=== PATIENT | female | born 1990 | race Caucasian/White ===

== ENCOUNTER 2016-12-07 08:53 | Emergency (ER) | payer BC ==
[2016-12-07 09:14] VITALS: BP 109/75
--- NOTE | 2016-12-07 09:26 | UC ---
Back Pain HPI - HPI Summary HPI Summary: She was "horsing around" with her boyfriend a few weeks ago and she fell off the bed and she had severe back extension. She had sudden pain and has had pain ever since. Intermittent thigh numbness. No weakness. pain is worse with back extension. - History of Current Complaint Chief Complaint: UCBackPain Stated Complaint: BACK PAIN Time Seen by Provider: 12/07/16 09:08 Hx Obtained From: Patient Hx Last Menstrual Period: "last week" ?: No Onset/Duration: Sudden Onset, Lasting Weeks Timing: Constant, Lasting Weeks Severity Initially: Severe Severity Currently: Severe Character: Sharp, Aching Aggravating: Movement, Lifting, Bending Alleviating: Rest, Position Associated Signs And Symptoms: Positive: Tingling. Negative: Bruising, Weakness , Numbness, Bladder Incontinence, Bowel Incontinence - Allergies/Home Medications Allergies/Adverse Reactions: Allergies Allergy/AdvReac Type Severity Reaction Status Date / Time Azithromycin [From Zithromax] Allergy Hives Verified 12/07/16 09:02 Clarithromycin [From Biaxin] Allergy Hives Verified 12/07/16 09:02 Tetracycline Allergy Hives Verified 12/07/16 09:02 [From Biocycline] Buprenorphine [From Butrans] AdvReac Nausea And Verified 12/07/16 09:02 Vomiting Tramadol AdvReac Nausea Verified 12/07/16 09:02 Home Medications: Home Medications PARoxetine HCL TAB* [Paxil TAB*] 20 mg PO DAILY 12/07/16 [History Confirmed ] oxyCODONE/Acetamin 10/325(NF) [Percocet 10/325 (NF)] 1 tab PO Q8H PRN 12/07/16 [ History Confirmed 12/07/16] PMH/Surg Hx/FS Hx/Imm Hx Previously Healthy: Yes - no prior back injury. - Surgical History Surgical History: Yes Surgery Procedure, Year, and Place: Sinus, 2015, [facility] (Dr. Cordova); Right Wrist Cystectomy, 2008, [facility]; T&A, 1996, [facility] - Family History Known Family History: Positive: Other - no known back disease. - Social History Lives: With Family Alcohol Use: Rare Substance Use Type: Prescribed Substance Use Comment - Amount & Last Used: Percocet - 12/05/16 Smoking Status (MU): Heavy Every Day Tobacco Smoker Type: Cigarettes Amount Used/How Often: 1/2 PPD Length of Time of Smoking/Using Tobacco: Since Age 16 Have You Smoked in the Last Year: Yes Household Exposure Type: Cigarettes - Immunization History Most Recent Influenza Vaccination: Not the Season Review of Systems Musculoskeletal: Other: - back pain. All Other Systems Reviewed And Are Negative: Yes Physical Exam Triage Information Reviewed: Yes Appearance: Well-Nourished - back pain with changes in position., Pain Distress Vital Signs: Initial Vital Signs Temp 98.2 F 12/07/16 08:58 Pulse 82 12/07/16 08:58 Resp 16 12/07/16 08:58 BP 109/75 12/07/16 08:58 Pulse Ox 100 12/07/16 08:58 Vital Signs Reviewed: Yes Eye Exam: Normal ENT Exam: Normal Neck exam: Normal Respiratory Exam: Normal Cardiovascular Exam: Normal Abdominal Exam: Normal Musculoskeletal Exam: Other - tenderness midline along T10-L1. no bruising. no obvious deformity. Neurological Exam: Normal - reflexes patella and achilles intact. Pin prick all dermatomes of the Lower extremeties intact and symmetric. Psychological Exam: Normal Psychological: Positive: Normal Response To Family Skin Exam: Normal Back Pain Course/Dx - Course Course Of Treatment: back strain from forced extension. there isno fx on x ray and neurologic exam is intact. no neuro deficits. I believe she can follow with sports medicine for back pain and possible PT. she will return for any wrosening or any consistent neuro symptoms. Mother was present for conversation. - Differential Dx/Diagnosis Provider Diagnoses: back strain. forced extension injury. Discharge - Discharge Plan Condition: Good Disposition: HOME Prescriptions: Naproxen [Naproxen 500 mg] 500 mg PO Q8H PRN #20 tab PRN Reason: Pain Patient Education Materials: Low Back Strain (ED), Lower Back Exercises (ED) Referrals: Bhargav Lafleur [Medical Doctor] -
--- NOTE | 2016-12-07 09:50 | RAD ---
INDICATION: Point tenderness at T10-L1 after falling off of a bed one day earlier COMPARISON: Lumbar spine radiograph dated December 12, 2012 TECHNIQUE: 3 views of the thoracic spine and 5 views of the lumbosacral were obtained. FINDINGS: There is very mild S-shaped curvature of the thoracic spine on the AP view, levoconvex superiorly and dextroconvex inferiorly. On the lateral view the vertebral bodies are appropriately aligned, intact and maintain appropriate height. Again seen is approximately 18 degrees of levoconvex curvature at the lumbar spine with the apex at the L3 vertebral body this is not significantly changed since the prior radiograph. The vertebral bodies are otherwise appropriately aligned and intact. IMPRESSION: Curvature of the thoracic and lumbar spine as described above without radiographically apparent fracture or dislocation.
== END 2016-12-07 10:01 | disposition home or self-care (01) ==
LOC: UCCORT 08:53
DX: S29.012A Strain of muscle and tendon of back wall of thorax, initial encounter (principal); R20.2 Paresthesia of skin; X58.XXXA Exposure to other specified factors, initial encounter; Y93.83 Activity, rough housing and horseplay; Y92.003 Bedroom of unspecified non-institutional (private) residence as the place of occurrence of the external cause; Z88.1 Allergy status to other antibiotic agents; Z88.5 Allergy status to narcotic agent; F17.210 Nicotine dependence, cigarettes, uncomplicated
CPT/HCPCS: 72070; 72110; 99212; G0463

== ENCOUNTER 2017-06-19 09:55 | Emergency (ER) | payer BC ==
[2017-06-19 12:13] VITALS: BP 109/66
--- NOTE | 2017-06-19 12:47 | UC ---
Ear Complaint HPI - HPI Summary HPI Summary: Pt c/o right ear pain X 1 day. Pt is scheduled for wisdom teeth extraction next week and has been told all 4 wisdom teeth are impacted. Pt was told that wisdom teeth are infected by dental care provider, no antibiotic given per patient - History of Current Complaint Chief Complaint: UCEar Stated Complaint: DENTAL COMPLAINT,RT EAR PAIN Time Seen by Provider: 06/19/17 12:19 Hx Obtained From: Patient Hx Last Menstrual Period: 05/22/17 ?: No Onset/Duration: Sudden Onset, Lasting Days, Still Present Severity Initially: Mild Severity Currently: Mild Pain Intensity: 5 - Allergies/Home Medications Allergies/Adverse Reactions: Allergies Allergy/AdvReac Type Severity Reaction Status Date / Time azithromycin [From Zithromax] Allergy Hives Verified 06/19/17 12:07 buprenorphine Allergy Nausea And Verified 06/19/17 12:07 Vomiting clarithromycin [From Biaxin] Allergy Hives Verified 06/19/17 12:07 tetracycline Allergy Hives Verified 06/19/17 12:07 tramadol Allergy Nausea Verified 06/19/17 12:07 Home Medications: Home Medications Escitalopram (NF) [Lexapro 20 mg (NF)] 20 mg PO DAILY 06/19/17 [History Confirmed 06/19/17] Naproxen Sodium [Aleve] 440 mg PO ONCE PRN 06/19/17 [History Confirmed 06/19/17] PMH/Surg Hx/FS Hx/Imm Hx Previously Healthy: Yes - Surgical History Surgical History: Yes Surgery Procedure, Year, and Place: T & A ';. CYSTECTOMY R WRIST--2008. sinus - Family History Known Family History: Positive: Other - no known back disease. - Social History Occupation: Employed Full-time Lives: With Family Alcohol Use: Rare Substance Use Type: None Substance Use Comment - Amount & Last Used: Percocet - 12/05/16 Smoking Status (MU): Heavy Every Day Tobacco Smoker Type: Cigarettes Amount Used/How Often: 1/2 PPD Length of Time of Smoking/Using Tobacco: Since Age 16 Have You Smoked in the Last Year: Yes Household Exposure Type: Cigarettes - Immunization History Most Recent Influenza Vaccination: no Review of Systems Constitutional: Negative Skin: Negative Eyes: Negative ENT: Dental Pain, Ear Ache - right ear Respiratory: Negative Cardiovascular: Negative Gastrointestinal: Negative Genitourinary: Negative Motor: Negative Neurovascular: Negative Musculoskeletal: Negative Neurological: Negative Psychological: Negative Is Patient Immunocompromised?: No All Other Systems Reviewed And Are Negative: Yes Physical Exam Triage Information Reviewed: Yes Appearance: Well-Appearing Vital Signs: Initial Vital Signs Temp 98.4 F 06/19/17 12:09 Pulse 64 06/19/17 12:09 Resp 18 06/19/17 12:09 BP 109/66 06/19/17 12:09 Pulse Ox 100 06/19/17 12:09 Vital Signs Reviewed: Yes Eye Exam: Normal ENT Exam: Other ENT: Positive: TM bulging - rigth TM Dental Exam: Other - wisdom teeth erkupting upper and lower bilateral, swelling of gums Neck exam: Normal Neck: Positive: Supple Respiratory Exam: Normal Cardiovascular Exam: Normal Musculoskeletal Exam: Normal Neurological Exam: Normal Psychological Exam: Normal Skin Exam: Normal Ear Complaint Course/Dx - Differential Dx/Diagnosis Differential Diagnosis/HQI/PQRI: Other - dental abscess Provider Diagnoses: right ear pain. dental pain Discharge - Discharge Plan Condition: Stable Disposition: HOME Prescriptions: Amoxicillin PO (*) [Amoxicillin 500 MG CAP*] 500 mg PO Q12H #20 cap predniSONE TAB* [Deltasone TAB*] 20 mg PO DAILY #4 tab Patient Education Materials: Toothache (ED), Earache (ED) Referrals: Lis Antoine PA [Primary Care Provider] - If Needed Additional Instructions: Please keep your dental appointment as scheduled. Please return to clinic as needed or follow up with your dentist.
== END 2017-06-19 13:06 | disposition home or self-care (01) ==
LOC: UCCORT 09:55
DX: H92.01 Otalgia, right ear (principal); K08.89 Other specified disorders of teeth and supporting structures; Z88.1 Allergy status to other antibiotic agents; Z88.5 Allergy status to narcotic agent; Z88.8 Allergy status to other drugs, medicaments and biological substances; F17.210 Nicotine dependence, cigarettes, uncomplicated
CPT/HCPCS: 99212; G0463

== ENCOUNTER 2017-12-28 09:16 | Emergency (ER) | payer BC, MEDICAID ==
[2017-12-28 10:33] VITALS: BP 114/68
--- NOTE | 2017-12-28 10:40 | UC ---
Throat Pain/Nasal Melquiades HPI - HPI Summary HPI Summary: 27 y/o female presents to the urgent care c/o sore throat since this morning when she woke up. Pain w// swallowing is 8/10. She took Dayquill PO to alleviate symptoms. Pt w/ PMHX of tonsillectomy and states when she has strep in the past her throat is not as severe. Pt denies fever, SOB, cough, chest pain, URI, abdominal pain, N/V/D. - History of Current Complaint Chief Complaint: UCRespiratory Stated Complaint: ST Time Seen by Provider: 12/28/17 10:39 Hx Obtained From: Patient Hx Last Menstrual Period: 05/22/17 ?: No Onset/Duration: Gradual Onset, Lasting Hours - 12 hrs Severity: Moderate Pain Intensity: 5 Pain Scale Used: 0-10 Numeric Cough: None Associated Signs & Symptoms: Positive: Dysphagia - Epiglottits Risk Factors Epiglottis Risk Factors: Negative - Allergies/Home Medications Allergies/Adverse Reactions: Allergies Allergy/AdvReac Type Severity Reaction Status Date / Time azithromycin [From Zithromax] Allergy Hives Verified 12/28/17 10:27 buprenorphine Allergy Nausea And Verified 12/28/17 10:27 Vomiting clarithromycin [From Biaxin] Allergy Hives Verified 12/28/17 10:27 tetracycline Allergy Hives Verified 12/28/17 10:27 tramadol Allergy Nausea Verified 12/28/17 10:27 Home Medications: Home Medications Norgestimate-Ethinyl Estradiol [Ortho Tri-Cyclen Lo Tablet] 1 tab DAILY [History Confirmed 12/28/17] PMH/Surg Hx/FS Hx/Imm Hx Previously Healthy: Yes Neurological History: Migraine Psychological History: Anxiety - Surgical History Surgical History: Yes Surgery Procedure, Year, and Place: T & A ';. CYSTECTOMY R WRIST--2008. sinus - Family History Known Family History: Positive: None - Pt denies FMHX - Social History Occupation: Employed Full-time Lives: With Family Alcohol Use: Occasionally Substance Use Type: None Substance Use Comment - Amount & Last Used: Percocet - 12/05/16 Smoking Status (MU): Heavy Every Day Tobacco Smoker Type: Cigarettes Amount Used/How Often: 1/2 PPD Length of Time of Smoking/Using Tobacco: Since Age 16 Have You Smoked in the Last Year: Yes Household Exposure Type: Cigarettes - Immunization History Most Recent Influenza Vaccination: no Most Recent Tetanus Shot: UTD Review of Systems Constitutional: Negative Skin: Negative Eyes: Negative ENT: Sore Throat Respiratory: Negative Cardiovascular: Negative Gastrointestinal: Negative Genitourinary: Negative Motor: Negative Neurovascular: Negative Musculoskeletal: Negative Neurological: Headache Psychological: Negative Is Patient Immunocompromised?: No All Other Systems Reviewed And Are Negative: Yes Physical Exam - Summary Physical Exam Summary: VITAL SIGNS: Reviewed. GENERAL: Patient is a well developed and nourished female who is sitting comfortable in the examining table. Patient is not in any acute respiratory distress. HEAD AND FACE: No signs of trauma. No ecchymosis, hematomas or skull depressions. No sinus tenderness. EYES: PERRLA, EOMI x 2, No injected conjunctiva, no nystagmus. No photophobia. EARS: Hearing grossly intact. Ear canals and tympanic membranes are within normal limits. MOUTH: Positive pharynx with erythema, exudates, palatal petechiae. NO tonsils. Uvula in midline. NECK: Supple, trachea is midline, Positive anterior cervical lymphadenopathy, no JVD, no carotid bruit, no c-spine tenderness, neck with full ROM. No meningeal signs, no Kernig's or brudzinskis signs. CHEST: Symmetric, no tenderness at palpation LUNGS: Clear to auscultation bilaterally. No wheezing or crackles. CVS: Regular rate and rhythm, S1 and S2 present, no murmurs or gallops appreciated. ABDOMEN: Soft, non-tender. No signs of distention. No rebound no guarding, and no masses palpated. Bowel sounds are normal. EXTREMITIES: FROM in all major joints, no edema, no cyanosis or clubbing. NEURO: Alert and oriented x 3. No acute neurological deficits. Speech is normal and follows commands. SKIN: Dry and warm Triage Information Reviewed: Yes Vital Signs: Initial Vital Signs Temp 97.4 F 12/28/17 10:29 Pulse 65 12/28/17 10:29 Resp 16 12/28/17 10:29 BP 114/68 12/28/17 10:29 Pulse Ox 100 12/28/17 10:29 Throat Pain/Nasal Course/Dx - Course Course Of Treatment: 27 y/o female presents to the urgent care c/o sore throat since this morning when she woke up. Pain w// swallowing is 8/10. She took Dayquill PO to alleviate symptoms. Pt w/ PMHX of tonsillectomy and states when she has strep in the past her throat is not as severe. Pt denies fever, SOB, cough, chest pain, URI, abdominal pain, N/V/D. Hx obtained. Pt w/ pharyngitis on examination. Rapid strep ordered, result: negative. Viral pharyngitis.Pt Rx ibuprofen PO to alleviates symptoms of pain and swelling. Advised on hand washing to avoid spreading. Pt advised to rest, eat well and avoid strenuous exercise. If symptoms do not improve or worsen advised to return to the urgent care or f/u with her PCP for further evaluation and treatment. Pt understood and agreed - Differential Dx/Diagnosis Differential Diagnosis/HQI/PQRI: Laryngitis, Mononucleosis, Pharyngitis, Tonsillitis, URI Provider Diagnoses: 1- Viral pharyngitis Discharge - Sign-Out/Discharge Documenting (check all that apply): Patient Departure - D/C home All imaging exams completed and their final reports reviewed: No Studies - Discharge Plan Condition: Stable Disposition: HOME Prescriptions: Ibuprofen TAB* [Motrin TAB* 800 MG] 800 mg PO Q6H PRN #30 tab PRN Reason: Sore Throat Patient Education Materials: Pharyngitis (ED) Forms: *Work Release Referrals: Lis Antoine PA [Primary Care Provider] - 3 Days Additional Instructions: 1-Please take ibuprofen PO q6-8hrs prn as instructed after meals to alleviate pain and swelling. Increase fluid intake, eat well, rest and avoid strenuous exercise 2-If symptoms do not improve or worsen please return to the urgent care or f/u with your PCP for further evaluation and treatment. - Billing Disposition and Condition Condition: STABLE Disposition: Home
== END 2017-12-28 11:02 | disposition home or self-care (01) ==
LOC: UCCORT 09:16
DX: J02.8 Acute pharyngitis due to other specified organisms (principal); Z88.1 Allergy status to other antibiotic agents; Z88.5 Allergy status to narcotic agent; F17.210 Nicotine dependence, cigarettes, uncomplicated
CPT/HCPCS: 87651; 99212; G0463

== ENCOUNTER 2019-02-11 08:56 | Emergency (ER) | payer SELFPAY ==
[2019-02-11 10:20] VITALS: BP 124/77
--- NOTE | 2019-02-11 10:29 | UC ---
Respiratory Complaint HPI - HPI Summary HPI Summary: 28 y/o female presents to the urgent care c/o chest congestion w/ productive cough since Monday02/08/2019. Pt reports she has been w/ sinus congestion for the past week. However, On Monday she went to sleep after work for an hour and she woke up w/ a productive cough and mild wheezing. She has been coughing so much that her mid back hurts and last night was unable to sleep. This morning cough is more productive w/ SOB, wheezing, and VALLES. She is an everyday heavy smoker. She has been Tx w/ albuterol inhaler and steroids in the past , but has never been Dx w/ asthma. However, Her mother has PMHX of emphysema due to alpha -1 antitrypsin and her mother has told her to go to the get it test it. Pt has taken OTC medications e/o any improvement, The inhaler she had at home is . Pt feels body aches, chills, VALLES, and denies fever, but has felt warm. Denies chest pain, palpitations, recent travel, abdominal pain, N/V/D. LMP: she has her period now. - History of Current Complaint Chief Complaint: UCRespiratory Stated Complaint: COUGH Time Seen by Provider: 02/11/19 10:19 Hx Obtained From: Patient Hx Last Menstrual Period: 02/07/19 ?: No - she has her period now Onset/Duration: Gradual Onset, Lasting Days - 4 days, Still Present Timing: Intermittent Episodes Severity Initially: Mild Severity Currently: Moderate Pain Intensity: 6 - VALLES , body aches Pain Scale Used: 0-10 Numeric Character: Cough: Productive, Sputum Description: - green Aggravating Factors: Recumbent Position Alleviating Factors: OTC Meds Associated Signs And Symptoms: Positive: Wheezing, URI, Nasal Congestion, Sinus Discomfort. Negative: Fever, Chills, Dizziness - Risk Factors Pulmonary Embolism Risk Factors: Negative Cardiac Risk Factors: Negative Pseudomonas Risk Factors: Negative Tuberculosis Risk Factors: Negative - Allergies/Home Medications Allergies/Adverse Reactions: Allergies Allergy/AdvReac Type Severity Reaction Status Date / Time azithromycin [From Zithromax] Allergy Hives Verified 02/11/19 10:12 buprenorphine Allergy Nausea And Verified 02/11/19 10:12 Vomiting clarithromycin [From Biaxin] Allergy Hives Verified 02/11/19 10:12 tetracycline Allergy Hives Verified 02/11/19 10:12 tramadol Allergy Nausea Verified 02/11/19 10:12 PMH/Surg Hx/FS Hx/Imm Hx Previously Healthy: Yes Psychological History: Anxiety - Surgical History Surgical History: Yes Surgery Procedure, Year, and Place: T & A ';. CYSTECTOMY R WRIST--2008. sinus - Family History Known Family History: Positive: None - Pt denies FMHX, Other - no known back disease. - Social History Occupation: Employed Full-time Lives: With Family Alcohol Use: Occasionally Substance Use Type: None Substance Use Comment - Amount & Last Used: Percocet - 12/05/16 Smoking Status (MU): Heavy Every Day Tobacco Smoker Type: Cigarettes Amount Used/How Often: 1/2 PPD Length of Time of Smoking/Using Tobacco: Since Age 16 Have You Smoked in the Last Year: Yes Household Exposure Type: Cigarettes - Immunization History Most Recent Influenza Vaccination: no Most Recent Tetanus Shot: UTD Vaccination Up to Date: Yes Review of Systems All Other Systems Reviewed And Are Negative: Yes Constitutional: Positive: Negative Skin: Positive: Negative Eyes: Positive: Negative ENT: Positive: Nasal Discharge - green, Sinus Congestion, Sinus Pain/Tenderness , Other - PND Respiratory: Positive: Shortness Of Breath - mild, Cough - productive w/ green discharge, Other - wheezing Cardiovascular: Positive: Negative Gastrointestinal: Positive: Negative Genitourinary: Positive: Negative Motor: Positive: Negative Neurovascular: Positive: Negative Musculoskeletal: Positive: Myalgia Neurological: Positive: Headache Psychological: Positive: Negative Is Patient Immunocompromised?: No Physical Exam - Summary Physical Exam Summary: Vital Signs Reviewed: Yes General: well developed, well nourished female sitting in the examining table w/ o any apparent distress Eyes: Positive: Conjunctiva Clear - PERRLA, EOMI, fundi grossly normal ENT: Positive: Normal ENT inspection, Hearing grossly normal, Pharynx normal, Nasal congestion - edematous and erythematous nasal mucosa, Nasal drainage - yellowish drainage, TMs normal. Negative: Tonsillar swelling, Tonsillar exudate Neck: Positive: Supple, Nontender, No Lymphadenopathy Respiratory: no orthopnea or dyspnea. Able to speak in full sentences, no retractions or accessory muscle use, no tripod position, stridor, or head bobbing. Positive breath sounds bilaterally. diffuse scattered wheezing and rhonchi on b/L lungs, no crackles or rales. Cardiovascular: Positive: RRR, No Murmur, Pulses Normal, Brisk Capillary Refill Abdomen Description: Positive: Nontender, No Organomegaly, Soft. Negative: CVA Tenderness (R), CVA Tenderness (L) Bowel Sounds: Positive: Present Musculoskeletal Exam: Normal Musculoskeletal: Positive: Strength Intact, ROM Intact, No Edema Neurological Exam: Normal Psychological Exam: Normal Skin Exam: Normal Triage Information Reviewed: Yes Vital Signs: Initial Vital Signs Temp 98.3 F 02/11/19 10:14 Pulse 90 02/11/19 10:14 Resp 22 02/11/19 10:14 BP 124/77 02/11/19 10:14 Pulse Ox 99 02/11/19 10:14 Respiratory Course/Dx - Course Course Of Treatment: 28 y/o female presents to the urgent care c/o chest congestion w/ productive cough since Monday02/08/2019. Pt reports she has been w/ sinus congestion for the past week. However, On Monday she went to sleep after work for an hour and she woke up w/ a productive cough and mild wheezing. She has been coughing so much that her mid back hurts and last night was unable to sleep. This morning cough is more productive w/ SOB, wheezing, and VALLES. She is an everyday heavy smoker. She has been Tx w/ albuterol inhaler and steroids in the past , but has never been Dx w/ asthma. However, Her mother has PMHX of emphysema due to alpha -1 antitrypsin and her mother has told her to go to the get it test it. Pt has taken OTC medications e/o any improvement, The inhaler she had at home is . Pt feels body aches, chills, VALLES, and denies fever, but has felt warm. Denies chest pain, palpitations, recent travel, abdominal pain, N/V/D. LMP: she has her period now. Hx obtained. Pt is hemodynamically stable, A&OX3, Vitals: WNL. Pt w/diffuse scattered wheezing and rhonchi on b/L lungs, no crackles or rales on examination O2Sat: 99%. Rapid Influenza A&B: negative. Pt given Prednisone PO and Duoneb Treatment by nurse to alleviate symptoms. Pt tolerated well treatment and lungs improved,and wheezing decrease. Chest X-ray ordered to r/o pneumonia: Impression: no acute cardiopulmonary disease observed. Pt w/ acute bronchitis. Pt allergic to Z-beth and Tetracycline. Patient prescribed Cefdinir PO, Prednisone PO, albuterol inhaler and Tessalon Tabs to alleviate symptoms as directed below. The patient was recommended to increase fluid intake. Take medications as recommended. Pt advised f/u w/ PCP in 2-3 days to make sure symptoms are improving and further management sicne she may be developing asthma or enphysema. Educated on quitting smoking. Strongly advised if symptosm worse w/ severe wheezing and SOB to go inmediately to the ER for further management. All D/C instructions explained. Patient understood and agree w/ plan of care. Pt left clinic hemodynamically stable , A& OX3 and ambulating and feeling better - Differential Dx/Diagnosis Differential Diagnosis/HQI/PQRI: Asthma, Bronchitis, Exacerbation Of COPD, Lower Resp Infection, Sinusitis, Other - pneumonia Provider Diagnosis: Acute bronchitis, Wheezing Discharge ED - Sign-Out/Discharge Documenting (check all that apply): Patient Departure - D/C home All imaging exams completed and their final reports reviewed: Yes - Discharge Plan Condition: Stable Disposition: HOME Prescriptions: Albuterol HFA INHALER* [Ventolin HFA Inhaler*] 1 - 2 puff INH Q6H PRN #1 mdi PRN Reason: Wheezing Albuterol/Ipratropium NEB.LACHELLE* [Duoneb (Albuterol 2.5 MG/Ipratropium 0.5 MG)] 1 neb INH Q6H PRN #1 neb.lachelle PRN Reason: Wheezing Benzonatate CAP* [Tessalon 100 MG CAP*] 100 mg PO TID PRN #21 cap PRN Reason: Cough Cefdinir cap* [Cefdinir 300 MG cap (NF)] 300 mg PO BID #20 cap predniSONE TAB* [Deltasone 20 MG TAB*] 20 mg PO DAILY #8 tab Patient Education Materials: Acute Bronchitis (ED), Wheezing (ED) Forms: *Work Release Referrals: Hollie Zamudio NP [Primary Care Provider] - 3 Days Additional Instructions: 1- Please take the full course of the antibiotic to avoid resistance.Take yogurts w/ probiotics or Culturelle to protect your GI system 2- Take Prednisone PO taper dose as directed starting tomorrow. First loading dose given today. 3-Use the Duoneb nebulizer treatment to alleviate SOB, and wheezing as directed . Take Tessalon tabs PO to alleviate cough. Increase fluid intake, rest and eat well. 4- If symptoms do not improve or worsen or your develop SOB with fever and severe wheezing please go immediately to the ER further evaluation and treatment. 4- F/u with your PCP in 2-3 days for further management to make sure symptoms are improving your may be developing Asthma or other pulmonary disease since there is Hx of Emphysema in the family - Billing Disposition and Condition Condition: STABLE Disposition: Home
[2019-02-11] MEDS ORDERED: Albuterol/Ipratropium NEB.SOL* Albuterol 2.5 MG/Ipratropium 0.5 MG 3 ML INH ONE (10:39)
[2019-02-11] MEDS ORDERED: predniSONE TAB* 20 MG PO ONE (10:39)
[2019-02-11 11:09] LABS: Influenza A Molecular NEGATIVE (Negative); Influenza B Molecular NEGATIVE (Negative)
== END 2019-02-11 11:47 | disposition home or self-care (01) ==
LOC: UCCORT 08:56
DX: J20.9 Acute bronchitis, unspecified (principal); R06.2 Wheezing; R09.89 Other specified symptoms and signs involving the circulatory and respiratory systems; F17.210 Nicotine dependence, cigarettes, uncomplicated; Z88.1 Allergy status to other antibiotic agents; Z88.5 Allergy status to narcotic agent
CPT/HCPCS: 71046; 99212; A9270-GY; G0463; J7512